=== PATIENT | male | born 2000 | race Asian ===

== ENCOUNTER 2022-01-16 14:32 | Emergency (ER) | payer BC ==
[~2022-01-16] VITALS: Ht 172.7 cm; Wt 76.2 kg
[2022-01-16 14:50] VITALS: BP 125/78
--- NOTE | 2022-01-16 15:00 | NUR ---
BIB FOR MED REFILL FOR ACNE. BENZOYL PEROXIDE WASH FDC 5%, CLINDAMYCIN PHOSPHATE TOPICAL SOLUTION FDC 1% PMH: DENIES
--- NOTE | 2022-01-16 15:02 | NUR ---
Patient being evaluated by MANUEL NUÑEZ at [facility].
[2022-01-16] MEDS ORDERED: [UNRECOGNIZED DRUG - CODE] TP (15:09)
[2022-01-16 15:15] VITALS: BP 122/64
== END 2022-01-16 15:02 | disposition home or self-care (01) ==
LOC: MED 14:32
DX: L70.9 Acne, unspecified (principal); Z76.0 Encounter for issue of repeat prescription
CPT/HCPCS: 99281